=== PATIENT | male | born 2000 | race Two or more races ===

== ENCOUNTER → 2022-08-29 | Outpatient (CLI) | payer BC ==
[2022-08-29 16:24] LABS: Basophils # (auto) 0.1 10 ^3/uL (0-0.2); Basophils % (auto) 1.1 % (0.0-2.0); Eosinophils # (auto) 0.1 10 ^3/uL (0-0.8); Eosinophils % (auto) 1.8 % (0.0-7.0); Hemoglobin 15.4 g/dL (13.5-17.5); Lymphocytes # (auto) 2.1 10 ^3/uL (0.4-5.4); Lymphocytes % (auto) 28.1 % (10.0-50.0); Mean Corpuscular Hemoglobin 29.5 pg (28.0-32.0); Mean Corpuscular Hgb Conc. 34.2 g/dL (32.0-36.0); Mean Corpuscular Volume 86.3 fL (80.0-100.0); Monocytes # (auto) 0.6 10 ^3/uL (0-1.3); Monocytes % (auto) 7.7 % (0.0-12.0); Neutrophils # (auto) 4.6 10 ^3/uL (1.6-8.6); Neutrophils % (auto) 61.3 % (37.0-80.0); Nucleated Red Blood Cells % 0.2 %; Red Blood Cells 5.22 10^6/uL (4.5-5.90); Red Cell Distribution Width 13.4 % (11.8-14.3); White Blood Cell 7.5 10^3/uL (4.4-10.8)
[2022-08-29 17:11] LABS: Albumin 4.5 g/dL (3.4-5.0); Calcium 9.6 mg/dL (8.5-10.1); Potassium 4.8 mmol/L (3.5-5.1)
[2022-08-29 17:15] LABS: BUN/Creatinine Ratio 11.1 (10.0-20.0); Bilirubin, Total 0.3 mg/dL (0.2-1.0)
== END | disposition home or self-care (01) ==
LOC: LAB 16:13
DX: E66.01 Morbid (severe) obesity due to excess calories (principal); M25.561 Pain in right knee; Z76.89 Persons encountering health services in other specified circumstances
CPT/HCPCS: 36415; 80053; 82306; 85025

== ENCOUNTER 2022-10-10 16:27 | Inpatient (IN) | payer BC ==
[~2022-10-10] VITALS: Ht 182.9 cm; Wt 117.2 kg
[2022-10-10] MEDS ORDERED: AMPICILLIN & SULBACTAM SODIUM 3 GM in SODIUM CHL 0.9% 100 ML IV SCH (19:00)
[2022-10-10] MEDS ORDERED: SODIUM CHLORIDE 0.9% 1,000 ML IV ONE (19:00)
[2022-10-10] MEDS ORDERED: IOHEXOL 300 MG/ML 100ML BOTTLE IJ ONE (19:04)
[2022-10-10 19:32] LABS: Basophils # (auto) 0 10 ^3/uL (0-0.2); Basophils % (auto) 0.5 % (0.0-2.0); Eosinophils # (auto) 0.2 10 ^3/uL (0-0.8); Eosinophils % (auto) 2.3 % (0.0-7.0); Hemoglobin 15.1 g/dL (13.5-17.5); Lymphocytes # (auto) 2.6 10 ^3/uL (0.4-5.4); Mean Corpuscular Hemoglobin 29.9 pg (28.0-32.0); Mean Corpuscular Hgb Conc. 34.3 g/dL (32.0-36.0); Mean Corpuscular Volume 87.2 fL (80.0-100.0); Monocytes # (auto) 0.6 10 ^3/uL (0-1.3); Monocytes % (auto) 7.5 % (0.0-12.0); Neutrophils # (auto) 4.3 10 ^3/uL (1.6-8.6); Neutrophils % (auto) 55.7 % (37.0-80.0); Nucleated Red Blood Cells % 0.2 %; Red Blood Cells 5.04 10^6/uL (4.5-5.90); Red Cell Distribution Width 13.3 % (11.8-14.3); White Blood Cell 7.8 10^3/uL (4.4-10.8)
[2022-10-10 19:42] LABS: Albumin 4.2 g/dL (3.4-5.0); Calcium 9.1 mg/dL (8.5-10.1)
[2022-10-10 19:45] LABS: BUN/Creatinine Ratio 14.3 (10.0-20.0); Bilirubin, Total 0.3 mg/dL (0.2-1.0); Total Protein 7.9 g/dL (6.4-8.2)
[2022-10-10] MEDS ORDERED: HYDROcodone-ACET 5/325MG TAB PO PRN (23:45)
[2022-10-10] MEDS ORDERED: ONDANSETRON HCL 4 MG/2 ML VIAL IV PRN (23:45)
[2022-10-10] MEDS ORDERED: VANCOMYCIN PER PHARMACY 0 MG IV SCH (23:45)
[2022-10-10] MEDS ORDERED: VANCOMYCIN 1GM/250ML 250 ML IV ONE (23:45)
[2022-10-10] MEDS ORDERED: ACETAMINOPHEN 325 MG TAB PO PRN (23:45)
[2022-10-10] MEDS ORDERED: TEMAZEPAM 15 MG CAP PO PRN (23:45)
[2022-10-11 00:03] LABS: INR 1.07 (0.9-1.15); Partial Thromboplastin Time 33.2 SEC (24.5-34.5); Prothrombin Time 11.2 sec (9.3-11.8)
[2022-10-11 06:32] LABS: Basophils # (auto) 0 10 ^3/uL (0-0.2); Basophils % (auto) 0.4 % (0.0-2.0); Eosinophils # (auto) 0.1 10 ^3/uL (0-0.8); Eosinophils % (auto) 1.6 % (0.0-7.0); Hematocrit 44.2 % (41.0-53.0); Hemoglobin 14.8 g/dL (13.5-17.5); Lymphocytes # (auto) 1.8 10 ^3/uL (0.4-5.4); Mean Corpuscular Hemoglobin 29.1 pg (28.0-32.0); Mean Corpuscular Hgb Conc. 33.5 g/dL (32.0-36.0); Monocytes # (auto) 0.5 10 ^3/uL (0-1.3); Monocytes % (auto) 7.7 % (0.0-12.0); Neutrophils # (auto) 4.2 10 ^3/uL (1.6-8.6); Neutrophils % (auto) 63.3 % (37.0-80.0); Nucleated Red Blood Cells % 0.2 %; Red Blood Cells 5.08 10^6/uL (4.5-5.90); Red Cell Distribution Width 13.3 % (11.8-14.3); White Blood Cell 6.7 10^3/uL (4.4-10.8)
[2022-10-11 06:46] LABS: BUN/Creatinine Ratio 12.5 (10.0-20.0); Calcium 8.9 mg/dL (8.5-10.1); Potassium 3.8 mmol/L (3.5-5.1)
[2022-10-11 08:57] VITALS: PULSE 71; RESP 16; O2SAT 96
[2022-10-11] MEDS ORDERED: VANCOMYCIN 1GM/250ML 250 ML IV ONE (09:03)
[2022-10-11] MEDS: PANTOPRAZOLE 40 MG TAB PO SCH (11:53)
[2022-10-11 13:30] VITALS: BP 124/59; PULSE 63; RESP 18; TEMP 98.4; O2SAT 96
[2022-10-11 13:35] VITALS: BP 124/59; PULSE 63; RESP 18; TEMP 98.4; O2SAT 96
[2022-10-11] MEDS ORDERED: VANCOMYCIN 1GM/250ML 250 ML IV SCH (15:00)
[2022-10-11 17:00] VITALS: BP 96/51; PULSE 74; RESP 16; TEMP 98; O2SAT 98
[2022-10-11 20:00] VITALS: PULSE 74; RESP 18; O2SAT 98
[2022-10-11 22:00] VITALS: BP 129/56; PULSE 71; RESP 18; TEMP 98; O2SAT 98
[2022-10-12] VITALS (7 sets, daily range): BP systolic 98–125; BP diastolic 55–72; PULSE 47–81; RESP 17–20; TEMP 97.8–98.6; O2SAT 96–100
[2022-10-12] MEDS: PANTOPRAZOLE 40 MG TAB PO SCH (09:20)
[2022-10-12] MEDS ORDERED: PIPERACILLIN-TAZOB 3.375GM 100 ML IV SCH (12:00)
[2022-10-12] MEDS: AMPICILLIN & SULBACTAM SODIUM 3 GM in SODIUM CHL 0.9% 100 ML IV SCH ×2 (12:00→18:50)
[2022-10-12] MEDS ORDERED: AMPICILLIN & SULBACTAM SODIUM 3 GM in SODIUM CHL 0.9% 100 ML IV SCH (12:00)
[2022-10-12] MEDS: VANCOMYCIN 1GM/250ML 250 ML IV SCH ×2 (13:42→21:33)
[2022-10-13] MEDS: AMPICILLIN & SULBACTAM SODIUM 3 GM in SODIUM CHL 0.9% 100 ML IV SCH ×5 (00:26→23:28)
[2022-10-13 05:00] VITALS: BP 128/61; PULSE 63; RESP 20; TEMP 97.7; O2SAT 98
[2022-10-13] MEDS: VANCOMYCIN 1GM/250ML 250 ML IV SCH ×3 (05:42→21:46)
[2022-10-13 08:00] VITALS: RESP 18; O2SAT 96
[2022-10-13 09:00] VITALS: BP 130/75; PULSE 59; RESP 20; TEMP 98.4; O2SAT 99
[2022-10-13 11:26] LABS: Hepatitis B Surface Antibody Negative (Negative)
[2022-10-13] MEDS ORDERED: BUPIVACAINE HCL 0.25% P/F 10 ML VIAL ONE (11:56)
[2022-10-13] MEDS ORDERED: LIDOCAINE W/ EPINEPHRINE 1% 20ML VIAL ONE (11:56)
[2022-10-13] MEDS ORDERED: MIDAZOLAM HCL 2MG/2ML 2ml VIAL (1mg/ml) ONE (12:42)
[2022-10-13] MEDS ORDERED: fentaNYL CITRATE 100 MCG/2 ML VL ONE (12:42)
[2022-10-13 12:49] LABS: Hepatitis C Antibody Negative (Negative)
[2022-10-13] MEDS ORDERED: DexAMETHasone SOD PHOS 10MG/1ML VIAL INJ ONE (13:03)
[2022-10-13] MEDS ORDERED: PROPOFOL 10 MG/ML 20 ML IV ONE (13:19)
[2022-10-13 17:00] VITALS: BP 122/75; PULSE 79; RESP 20; TEMP 98.2; O2SAT 95
[2022-10-13 22:00] VITALS: BP 110/59; PULSE 66; RESP 14; TEMP 98.2; O2SAT 97
[2022-10-14 05:00] VITALS: BP 117/60; PULSE 65; RESP 14; TEMP 98.1; O2SAT 98
[2022-10-14] MEDS: VANCOMYCIN 1GM/250ML 250 ML IV SCH (05:44)
[2022-10-14] MEDS: AMPICILLIN & SULBACTAM SODIUM 3 GM in SODIUM CHL 0.9% 100 ML IV SCH (06:55)
[2022-10-14 08:00] VITALS: BP 130/72; PULSE 69; RESP 16; TEMP 98.2; O2SAT 100
[2022-10-14] MEDS ORDERED: CLIN300C70 PO (10:28)
[2022-10-14] MEDS ORDERED: CEPH500C PO (10:28)
[2022-10-14] MEDS ORDERED: TRAM50TA2 PO (10:28)
[2022-10-14 12:00] VITALS: BP 130/68; PULSE 73; RESP 16; TEMP 98.6; O2SAT 96
== END 2022-10-14 13:04 | disposition home or self-care (01) | DRG 581 ==
LOC: ER 16:27 → TELE 23:36 → WEST WING 10-11 13:28 → TELE-WESTW 10-11 13:43 → WEST WING 10-11 19:00
PROVIDERS: ADMIT Family Medicine; ATTEND Family Medicine
PROC: 0W960ZZ Drainage of Neck, Open Approach (ICD-10-PCS; principal; 2022-10-13 12:44)
DX: L02.11 Cutaneous abscess of neck (principal); E66.9 Obesity, unspecified; Z82.49 Family history of ischemic heart disease and other diseases of the circulatory system; Z68.35 Body mass index [BMI] 35.0-35.9, adult
CPT/HCPCS: 36415; 70491; 80048; 80053; 80202; 85025; 85610; 85730; 86706; 86803; 87040; 87070; 87075; 87077; 87186; 87205; 96365; G0378; J1100; J2250; J2704; J3490

== ENCOUNTER 2023-09-12 10:03 | Emergency (ER) | payer BC ==
[~2023-09-12] VITALS: Ht 185.4 cm; Wt 122.0 kg
[~2023-09-12 10:03] MED LIST: CEPH500C PO; CLIN1CAP70 PO; TRAM50TA2 PO
[2023-09-12 11:13] LABS: Basophils # (auto) 0 10 ^3/uL (0-0.2); Basophils % (auto) 0.5 % (0.0-2.0); Eosinophils # (auto) 0.1 10 ^3/uL (0-0.8); Eosinophils % (auto) 1.8 % (0.0-7.0); Hemoglobin 15.7 g/dL (13.5-17.5); Lymphocytes # (auto) 2.1 10 ^3/uL (0.4-5.4); Lymphocytes % (auto) 31.9 % (10.0-50.0); Mean Corpuscular Hgb Conc. 34.1 g/dL (32.0-36.0); Mean Corpuscular Volume 88.1 fL (80.0-100.0); Monocytes # (auto) 0.5 10 ^3/uL (0-1.3); Monocytes % (auto) 7.1 % (0.0-12.0); Neutrophils # (auto) 3.8 10 ^3/uL (1.6-8.6); Neutrophils % (auto) 58.7 % (37.0-80.0); Nucleated Red Blood Cells % 0.1 %; Red Blood Cells 5.22 10^6/uL (4.5-5.90); Red Cell Distribution Width 13.4 % (11.8-14.3); White Blood Cell 6.5 10^3/uL (4.4-10.8)
[2023-09-12 11:37] LABS: Alanine Aminotransferase 99 U/L (7-40); Albumin 4.9 g/dL (3.2-4.8); Alkaline Phosphatase 57 U/L (46-116); Anion Gap 4 (5-15); Aspartate Aminotransferase 26 U/L (13-40); BUN/Creatinine Ratio 13.9 (10.0-20.0); Blood Urea Nitrogen 16 mg/dL (9-23); Calcium 10.5 mg/dL (8.7-10.4); Carbon Dioxide 29 mmol/L (20-30); Chloride 107 mmol/L (98-107); Glucose 87 mg/dL (74-106); Lipase 26 U/L (12-53); Potassium 4.7 mmol/L (3.5-5.1); Sodium 140 mmol/L (136-145)
[2023-09-12 11:37] LABS: Urine Bacteria None Seen /hpf (None Seen)
[2023-09-12 11:38] LABS: Bilirubin, Total 0.7 mg/dL (0.2-1.0); Total Protein 7.4 g/dL (5.7-8.2)
[2023-09-12 11:50] LABS: Urine Blood Negative /uL (Negative); Urine Clarity Clear (Clear); Urine Color Light-Yellow (Yellow); Urine Protein, UAD Negative (Negative); Urine Specific Gravity 1.025 (1.001-1.035); Urine Urobilinogen Normal (Negative); Urine WBC <1 /hpf (0 - 3); Urine pH 6.5 (5.0-9.0)
[2023-09-12] MEDS: IOHEXOL 300 MG/ML 100ML BOTTLE IJ ONE (12:02)
[2023-09-12 12:03] LABS: Amphetamine Screen, Urine Neg (NEGATIVE); Barbiturate Scree,Urine Neg (NEGATIVE); Benzodiazephine Screen, Urine Neg (NEGATIVE); Cocaine Screen, Urine Neg (NEGATIVE)
[2023-09-12 12:04] LABS: Cannabinoid Screen, Urine Neg (NEGATIVE); Opiate Scree,Urine Neg (NEGATIVE); Phencyclidine Screen, Urine Neg (NEGATIVE)
[2023-09-12] MEDS: LIDOCAINE VISCOUS 2% 15ML UD PO ONE (13:32)
[2023-09-12] MEDS: SUCRALFATE 1 GM TAB PO ONE (13:32)
[2023-09-12] MEDS: PANTOPRAZOLE 40 MG TAB PO ONE (13:33)
[2023-09-12] MEDS: SODIUM CHLORIDE 0.9% 1,000 ML IV ONE (13:33)
[2023-09-12 15:35] VITALS: BP 129/76; PULSE 66; RESP 19; TEMP 98.2; O2SAT 100
== END 2023-09-12 15:37 | disposition home or self-care (01) ==
LOC: ER 10:03
DX: R10.13 Epigastric pain (principal); Z98.890 Other specified postprocedural states; Z79.899 Other long term (current) drug therapy
CPT/HCPCS: 36415; 74177; 80053; 80307; 81001; 83605; 83690; 84484; 85025; 96360; 99285; J7030; Q9967